=== PATIENT | female | born 1970 | race Caucasian/White ===

== ENCOUNTER 2018-03-04 09:52 | Emergency (ER) | payer OTHER ==
[~2018-03-04] VITALS: Wt 77.1 kg
== END 2018-03-04 09:56 | disposition expired ==
LOC: ED 09:52
DX: I46.9 Cardiac arrest, cause unspecified (principal); V49.88XA Car occupant (driver) (passenger) injured in other specified transport accidents, initial encounter; Y93.89 Activity, other specified; Y92.413 State road as the place of occurrence of the external cause; Y99.9 Unspecified external cause status